=== PATIENT | male | born 1960 | race Caucasian/White ===

== ENCOUNTER → 2018-01-02 | Outpatient (REF) | payer OTHER ==
[2018-01-02 13:30] LABS: BLOOD UREA NITROGEN 13 MG/DL (7-18)
[2018-01-02 13:30] LABS: CREATININE FOR GFR 1.11 MG/DL (0.70-1.30); GLOMERULAR FILTRATION RATE > 60.0 (>56)
== END ==
LOC: M LAB REF 12:52
DX: I10 Essential (primary) hypertension (principal)

== ENCOUNTER → 2021-04-04 | Outpatient (CLI) | payer OTHER ==
[~2021-04-04] MED LIST: FISH1000 PO; FLOM0.4C39 PO; GLYB5TAB6 PO; JANU100T PO; JARD1TAB PO; LANTINJ4 SC; LIPI20TA PO; NIAC1TAB5 PO; OXYC1TAB23 PO; VICT18IN2 SC
--- NOTE | 2021-04-04 15:29 | REP ---
INDICATION: ENC FOR OTHER PREOP PROC, CALCULUS OF KIDNEY LABS . COMPARISON: None. FINDINGS: The superior mediastinal structures are midline. The cardiac silhouette is unremarkable in size, shape, and position. The diaphragmatic surfaces of the lungs are regular, and the costophrenic angles are clear. The pulmonary mora are clear. The imaged osseous structures are intact. IMPRESSION: There is no acute cardiopulmonary disease. <Electronically signed by Yuri Pereira > 04/04/21 [id number]
[2021-04-04 15:40] LABS: APPEARANCE, URINE CLEAR (CLEAR); BACTERIA, URINE AUTO NEGATIVE (NEGATIVE); BILIRUBIN, URINE AUTO NEGATIVE (NEGATIVE); BLOOD, URINE BLOOD NEGATIVE (NEGATIVE); COLOR, URINE YELLOW (YELLOW); GLUCOSE, URINE (UA) AUTO 3+ mg/dL (NEGATIVE); KETONE, URINE AUTO NEGATIVE (NEGATIVE); LEUKOCYTE ESTERASE, URINE AUTO NEGATIVE (NEGATIVE); NITRITE, URINE AUTO NEGATIVE (NEGATIVE); PROTEIN, URINE AUTO NEGATIVE (NEGATIVE); RBC, URINE AUTO 1 /HPF (0-3); SPECIFIC GRAVITY URINE AUTO 1.025 (1.002-1.035); SQUAMOUS EPITHELIAL CELL UR AU 0 /HPF (0-6); UROBILINOGEN, URINE AUTO 0.2 mg/dL (0.0-2.0); WBC, URINE AUTO 1 /HPF (0-3)
[2021-04-04 15:40] LABS: HEMATOCRIT 47.8 % (42.0-52.0); HEMOGLOBIN 15.6 g/dl (13.5-17.5); MEAN CORPUSCULAR HEMOGLOBIN 29.1 pg (27.0-33.0); MEAN CORPUSCULAR HGB CONC 32.6 g/dl (32.0-36.5); PLATELET COUNT, AUTOMATED 234 10^3/uL (150-450); RED BLOOD COUNT 5.37 10^6/uL (4.30-6.10); WHITE BLOOD COUNT 7.3 10^3/uL (4.0-10.0)
[2021-04-04 15:53] LABS: INR 1.18; PROTHROMBIN TIME 15.3 SECONDS (12.5-14.3)
[2021-04-04 15:54] LABS: PARTIAL THROMBOPLASTIN TIME 29.7 SECONDS (24.2-38.5)
[2021-04-04 16:08] LABS: BLOOD UREA NITROGEN 16 MG/DL (7-18); CALCIUM LEVEL 9.6 MG/DL (8.5-10.1); CARBON DIOXIDE LEVEL 29 MEQ/L (21-32); CHLORIDE LEVEL 107 MEQ/L (98-107); CREATININE FOR GFR 1.02 MG/DL (0.70-1.30); GLOMERULAR FILTRATION RATE > 60.0 (>56); GLUCOSE, FASTING 191 MG/DL (70-100); SODIUM LEVEL 140 MEQ/L (136-145)
--- NOTE | 2021-04-04 23:51 | ECGEPIP ---
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
== END ==
LOC: M LAB 14:38
PROVIDERS: ATTEND Nurse Practitioner Women's Health
DX: Z01.818 Encounter for other preprocedural examination (principal); N20.0 Calculus of kidney

== ENCOUNTER 2021-04-05 14:09 | Day surgery (SDC) | payer OTHER ==
[~2021-04-05] VITALS: Ht 175.3 cm; Wt 100.3 kg
[~2021-04-05 14:09] MED LIST changes: -FLOM0.4C39 PO; -OXYC1TAB23 PO; +ceFAZolin SOD 2 GM in IV 1 EA IV ONE
--- NOTE | 2021-04-05 14:34 | REP ---
INDICATION: KIDNEY STONE- PRIOR TO SDC. COMPARISON: No comparison radiographs.. TECHNIQUE: KUB. Single-view. FINDINGS: Bowel gas pattern is unremarkable. There is a 11 mm calculus projecting at the lower pole the left kidney consistent with intrarenal nephrolithiasis. Some vascular calcification is observed. A spina bifida occulta is noted at L5 incidentally. Psoas margins are symmetric. Study is otherwise unremarkable. IMPRESSION: Intrarenal nephrolithiasis left kidney. <Electronically signed by Cordell Gonzalez > 04/05/21 [id number]
[2021-04-05] MEDS ORDERED: KETAMINE HCL 200 MG/20 ML VIAL As Ordered ONE (15:21)
[2021-04-05] MEDS ORDERED: fentaNYL 100 MCG/2 ML INJECTION (J3010) As Ordered ONE (15:21)
[2021-04-05] MEDS ORDERED: MIDAZOLAM INJ 2MG/2ML VIAL (J2250 PER 1MG) As Ordered ONE (15:21)
[2021-04-05] MEDS ORDERED: propofoL 200 MG/20 ML VIAL As Ordered ONE (15:21)
[2021-04-05] MEDS ORDERED: LIDOCAINE 2% 100MG/5ML SDV (FOR ANES.) As Ordered ONE (15:21)
[2021-04-05] MEDS ORDERED: ONDANSETRON 4MG/2ML VIAL As Ordered ONE (15:22)
[2021-04-05] MEDS ORDERED: GLYCOPYRROLATE INJ 0.2 MG/ML 2 ML VIAL As Ordered ONE (15:26)
[2021-04-05] MEDS ORDERED: FLOM0.4C39 PO (15:58)
[2021-04-05] MEDS ORDERED: OXYC1TAB23 PO (15:58)
[2021-04-05 17:20] VITALS: BP 134/72
--- NOTE | 2021-04-05 19:23 | RO ---
OPERATIVE NOTE DATE OF OPERATION: 04/05/2021 PREOPERATIVE DIAGNOSIS: Left kidney stone. POSTOPERATIVE DIAGNOSIS: Left kidney stone. PROCEDURES: Left extracorporeal shock wave lithotripsy. SURGEON: Tarun Reed MD. EMERGENCY MEDICAL SERVICE MANAGER: None. ANESTHESIA: MAC. OPERATIVE INDICATIONS: This is a 61-year-old male who was found to have an approximately 1-cm nonobstructing left kidney stone. He was brought to the operating room today for treatment. DESCRIPTION OF PROCEDURE: The patient was brought to the operating room and MAC anesthesia was induced. Prophylactic antibiotics were infused. He was then placed in supine position in preparation for left-sided ESWL. Fluoroscopy was utilized to monitor stone position and fragmentation throughout the procedure. Shock waves were then delivered to the left-sided kidney stone, ungated. There were no arrhythmias. The stone did appear to fragment well. After 2500 shocks, the procedure was concluded. The patient was then awakend from anesthesia and transported to the recovery room in stable condition. ESTIMATED BLOOD LOSS: 0 mL. COMPLICATIONS: None. SPECIMEN: None. PLAN: The patient will follow up in the Urology Clinic in approximately 2-3 weeks with imaging prior to assess for residual stone burden.
== END 2021-04-05 17:20 | disposition home or self-care (01) ==
LOC: M SDC 14:09
PROVIDERS: ATTEND Urology
DX: N20.0 Calculus of kidney (principal); E78.00 Pure hypercholesterolemia, unspecified; E11.9 Type 2 diabetes mellitus without complications; M19.90 Unspecified osteoarthritis, unspecified site; M54.9 Dorsalgia, unspecified; G47.30 Sleep apnea, unspecified; Z87.891 Personal history of nicotine dependence; Z79.899 Other long term (current) drug therapy; Z79.4 Long term (current) use of insulin
CPT/HCPCS: 50590; 74018; 87798; J0690; J2250; J2405; J3010

== ENCOUNTER → 2021-04-17 | Outpatient (CLI) | payer OTHER ==
[~2021-04-17] MED LIST changes: +FLOM0.4C39 PO; +OXYC1TAB23 PO; -ceFAZolin SOD 2 GM in IV 1 EA IV ONE
--- NOTE | 2021-04-17 10:12 | REP ---
INDICATION: CALCULUS OF KIDNEY. COMPARISON: 04/05/2021 TECHNIQUE: AP film of the abdomen FINDINGS: Since the previous study done 04/05/2021 there has been fragmentation of the calculus in the lower pole of the left kidney. Multiple small fragments persist. No calculi are demonstrated in the course of the left ureter or bladder. IMPRESSION: Fragmentation of lower pole calculus left kidney since the previous study <Electronically signed by Ajit Almaraz > 04/17/21 [id number]
== END ==
LOC: M LAB 09:38
PROVIDERS: ATTEND Nurse Practitioner Women's Health
DX: N20.0 Calculus of kidney (principal)

== ENCOUNTER → 2021-04-19 | Outpatient (REF) | payer OTHER | LOC: M SMT 13:22 | PROVIDERS: ATTEND Nurse Practitioner Women's Health | DX: N20.0 Calculus of kidney (principal) ==